=== PATIENT | male | born 1935 | race Caucasian/White ===

== ENCOUNTER → 2019-07-26 | Day surgery (SDC) | payer MEDICARE, OTHER | LOC: MSO 09:06 | DX: H25.811 Combined forms of age-related cataract, right eye (principal); I11.0 Hypertensive heart disease with heart failure; I50.9 Heart failure, unspecified; J44.9 Chronic obstructive pulmonary disease, unspecified; E78.00 Pure hypercholesterolemia, unspecified; Z79.01 Long term (current) use of anticoagulants | CPT/HCPCS: J0171; J2250 ==